=== PATIENT | male | born 2000 | race American Indian/Alaskan Native ===

== ENCOUNTER 2019-03-25 03:03 | Emergency (ER) | payer OTHER ==
[2019-03-25 03:09] VITALS: BP 120/69
[2019-03-25] MEDS ORDERED: BENADRYL PO ONE (04:13)
[2019-03-25] MEDS ORDERED: PEPCID PO ONE (04:14)
[2019-03-25] MEDS ORDERED: SOLU-Medrol IM ONE (04:14)
--- NOTE | 2019-03-25 04:27 | Emergency Department Report ---
HPI - HPI HPI: 18 y.o male presents to ER with rash in upper extremities and trunk for two hrs. rash is pruritic. no n/v, no fever, chills or night sweats. Started after eating at [employer]. no sob, or wheezing. <SERAALEXANDRUPOONAM - Last Filed: 03/25/19 05:08> <CHRYSTALIRIS - Last Filed: 03/25/19 06:28> - General Chief Complaint: Allergic Reaction Time Seen by Provider: 03/25/19 04:13 ED Past Medical Hx - Past Medical History Previous Medical History?: Yes Hx Asthma: Yes - Surgical History Past Surgical History?: Yes Additional Surgical History: wisdom teeth - Social History Smoking Status: Never Smoker Substance Use Type: None <SERAALEXANDRUPOONAM - Last Filed: 03/25/19 05:08> ED Review of Systems ROS: Stated complaint: ALLERGIC REACTION Other details as noted in HPI Comment: All other systems reviewed and negative Endocrine: denies: flushing Gastrointestinal: denies: nausea Genitourinary: denies: urgency Skin: rash <DOMINICPOONAM - Last Filed: 03/25/19 05:08> ROS: Stated complaint: ALLERGIC REACTION Other details as noted in HPI <CHRYSTALIRIS - Last Filed: 03/25/19 06:28> Physical Exam - Physical Exam Vital Signs: Vital Signs 03/25/19 03:05 Temperature 98.1 F Pulse Rate 73 Respiratory 16 Rate Blood Pressure 120/69 O2 Sat by Pulse 98 Oximetry Physical Exam: Physical Exam: - General Limitations: No Limitations General appearance: alert, in no apparent distr - Head Head exam: Present: atraumatic, normocephalic - Eye Eye exam: Present: normal appearance - ENT ENT exam: Present: mucous membranes moist - Neck Neck exam: Present: normal inspection - Respiratory Respiratory exam: Present: normal lung sounds bilaterally. Absent: respiratory distress - Cardiovascular Cardiovascular Exam: Present: normal rhythm, tachycardia. Absent: systolic murmur, diastolic murmur, rubs, gallop - GI/Abdominal GI/Abdominal exam: Present: soft, normal bowel sounds - Extremities Exam Extremities exam: Present: normal inspection - Back Exam Back exam: Present: normal inspection - Neurological Exam Neurological exam: Present: alert, oriented X3 - Psychiatric Psychiatric exam: normal affect and mood - Skin Skin exam: Present: urticarial rash, warm, dry, intact, normal color. <POONAM ALFARO - Last Filed: 03/25/19 05:08> - Physical Exam Vital Signs: Vital Signs 03/25/19 03/25/19 03:05 04:29 Temperature 98.1 F Pulse Rate 73 Respiratory 16 16 Rate Blood Pressure 120/69 O2 Sat by Pulse 98 Oximetry <IRIS JARRELL - Last Filed: 03/25/19 06:28> ED Course Vital Signs 03/25/19 03:05 Temperature 98.1 F Pulse Rate 73 Respiratory 16 Rate Blood Pressure 120/69 O2 Sat by Pulse 98 Oximetry <POONAM ALFARO - Last Filed: 03/25/19 05:08> Vital Signs 03/25/19 03/25/19 03:05 04:29 Temperature 98.1 F Pulse Rate 73 Respiratory 16 16 Rate Blood Pressure 120/69 O2 Sat by Pulse 98 Oximetry <IRIS JARRELL - Last Filed: 03/25/19 06:28> ED Medical Decision Making - Medical Decision Making received benadryl, pepcid, solumedrol im. <POONAM ALFARO - Last Filed: 03/25/19 05:08> - Medical Decision Making On reevaluation, the bilateral upper extremities hives have resolved, and patient sleeping comfortably on the chair. Patient is hemodynamically stable with no airway compromise. Patient discharged home on medications, and advised to follow up with his PCP in 2 days for reevaluation, or return to the ED immediately if symptoms get worse. - Differential Diagnosis acute allergic reaction, Acute urticaria, Itching, Hives <IRIS JARRELL Last Filed: 03/25/19 06:28> Critical care attestation.: If time is entered above; I have spent that time in minutes in the direct care of this critically ill patient, excluding procedure time. <POONAM ALFARO Last Filed: 03/25/19 05:08> Critical care attestation.: If time is entered above; I have spent that time in minutes in the direct care of this critically ill patient, excluding procedure time. <IRIS JARRELL - Last Filed: 03/25/19 06:28> ED Disposition Is pt being admited?: No Does the pt Need Aspirin: No <POONAM ALFARO - Last Filed: 03/25/19 05:08> Time of Disposition: 06:27 <IRIS JARRELL - Last Filed: 03/25/19 06:28> Clinical Impression: Acute urticaria, Itching with irritation Acute allergic reaction Qualifiers: Encounter type: initial encounter Qualified Code(s): T78.40XA - Allergy, unspecified, initial encounter Disposition: TO HOME OR SELFCARE Condition: Stable Prescriptions: diphenhydrAMINE [Benadryl CAP] 25 mg PO Q8HR PRN #15 capsule PRN Reason: Itching Prednisone [predniSONE 5 mg (6-Day Pack, 21 Tabs)] 5 mg PO .TAPER #1 tab.[email or web address] Print Language: AMHARIC
== END 2019-03-25 06:37 | disposition home or self-care (01) ==
LOC: ED 03:03
DX: L50.9 Urticaria, unspecified (principal); T78.40XA Allergy, unspecified, initial encounter; J45.909 Unspecified asthma, uncomplicated; Z91.010 Allergy to peanuts; X58.XXXA Exposure to other specified factors, initial encounter
CPT/HCPCS: 96372; 99282; J2930